=== PATIENT | female | born 1985 | race Caucasian/White ===

== ENCOUNTER 2021-04-25 14:02 | Emergency (ER) | payer BC, SELFPAY ==
--- NOTE | ~2021-04-25 | XR_ITS ---
EXAMINATION: XR chest 2V EXAM DATE: 04/25/2021 15:25 INDICATION: Cough for 2 weeks, left lower lateral rib pain. TECHNIQUE: Frontal and lateral projections of the chest obtained and reviewed. There is no prior kev dy for comparison. FINDINGS: The lungs are clear. There are no pleural effusions. The cardiomediastinal silhouette is within normal limits. There is no pneumothorax suspected. The bones and soft tissues are unremarkab le. IMPRESSION: No acute cardiopulmonary findings. Reviewed, dictated and finalized at location A. 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
--- NOTE | 2021-04-25 14:10 | ED.URI ---
HPI - URI/Sore Throat General Chief Complaint: Upper Respiratory Infection Stated Complaint: Cough/Fever/Dizziness Time Seen by Provider: 04/25/21 15:14 Source: patient and RN notes reviewed Mode of arrival: ambulatory Limitations: no limitations History of Present Illness HPI Narrative: 36-year-old female presents concern for pain under her left arm when she takes deep breath. She reports 10-day history of cough, body aches, chills, occasional shortness of breath, fever. Reports she has been using [id number] medications. MD elicited complaint: cough and sore throat Related Data Allergies Allergy/AdvReac Type Severity Reaction Status Date / Time No Known Allergies Allergy Unverified 04/21/21 08:47 Review of Systems Review of Systems: CONSTITUTIONAL: Reports malaise, chills, sweats, fever. EYES: Denies visual changes, redness, or discharge. ENT: Reports rhinorrhea, congestion. Denies sinus pain, otalgia and sore throat. CARDIOVASCULAR: Denies chest pain, palpitations, or edema. RESPIRATORY: Reports cough. Denies dyspnea. GASTROINTESTINAL: Denies abdominal pain, nausea, vomiting, diarrhea SKIN: Denies rash or itching. MUSCULOSKELETAL: Reports myalgia and left lateral rib pain. NEUROLOGIC: Denies headache. Reports dizziness All systems reviewed & are unremarkable except as noted in HPI and below PMFSH Comments At time of signature, agree with nursing past medical, surgical, social and family history. There is no relevant family history pertinent to the presenting complaint Exam Narrative: GENERAL: Well-appearing, well-nourished, and in no acute distress. HEAD: Normocephalic EYES: PERRLA, conjunctivae clear ENT: Nares clear, turbinates edematous, clear discharge. Mucous membranes moist. TM pearly vargas with dull light reflex bilaterally; no tragal tenderness. Oropharynx not erythematous without lesions. Tonsils not enlarged and without exudate, no drooling, no hoarseness, no trismus, uvula midline. NECK: Supple. No lymphadenopathy CHEST: Clear to auscultation, breath sounds equal. No wheezing, rhonchi, rales, or stridor. No respiratory distress, speaks in full sentences. Mild tenderness palpation of the left lateral lower ribs. Cough noted HEART: Regular rate and rhythm. No murmur heard. SKIN: Warm, dry, no rash. NEURO: Alert and oriented x3. PSYCH: Normal mood and affect Course Course Emergency Course: Patient is aware of diagnosis, understands and agrees to treatment plan. Anticipatory guidance given. Patient agrees to follow-up as directed and is aware of reasons to seek care at the emergency department. Portions of this record may have been created with voice recognition software Vital Signs Vital signs: Reviewed. MDM - URI/Sore Throat MDM Narrative Medical decision making narrative: Differential diagnosis considered: Mejía virus, strep pharyngitis, allergic rhinitis, upper respiratory tract infection, sinusitis, rhinosinusitis, nasopharyngitis. viral pharyngitis, otitis media, otitis externa, pneumonia, bronchitis, viral cough syndrome, viral syndrome, and influenza. Exam findings show no acute concerns or changes; patient is non-toxic appearing and is in no distress. Patient is appropriate for outpatient treatment and follow-up. Lab Data Attestation: I reviewed the patient's lab results. Critical Care Time Critical Care Time Critical Care Time: No Discharge Plan Discharge Clinical Impression: Sinobronchitis Patient Disposition: Home, Self-Care Condition: Stable Instructions: Antibiotic Form, Acute Bronchitis (ED) Additional Instructions: Take antibiotics as directed. Use muscle relaxers as needed for rib pain. Cough syrup may cause drowsiness; avoid driving or take it at night time. Also, recommend symptomatic treatment includes: rest, fluids, and increase humidity of the air at home. Recommend Acetaminophen as directed on the bottle to reduce fever, pain, headache. Avoid smoking/second-h
[2021-04-25 14:37] VITALS: BP 117/83; PULSE 97; RESP 20; TEMP 38.1; O2SAT 99
== END 2021-04-25 15:39 | disposition home or self-care (01) ==
PROVIDERS: Emergency Provider Nurse Practitioner; PCP Nurse Practitioner Family
DX: J32.9 Chronic sinusitis, unspecified (principal); J40 Bronchitis, not specified as acute or chronic; Z20.822 Contact with and (suspected) exposure to COVID-19
CPT/HCPCS: 71046; 87081; 87426; 87804; 87880; 99203; C9803; G0463

== ENCOUNTER 2021-06-02 09:24 | Emergency (ER) | payer BC, SELFPAY ==
--- NOTE | ~2021-06-02 | XR_ITS ---
EXAMINATION: XR chest 2V EXAM DATE: 06/02/2021 10:05 INDICATION: Post Covid Cough Since Apr.29. TECHNIQUE: Frontal and lateral projections of the chest obtained and reviewed. Comparison is made to prior examination from 04/25/2021. FINDINGS: The lungs are clear. There are no pleural effusions. The cardiomediastinal silhouette is within normal limits. There is no pneumothorax suspected. The bones and soft tissues are unremarkab le. IMPRESSION: No focal airspace disease. 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
[2021-06-02 09:36] VITALS: BP 120/76; PULSE 101; RESP 20; TEMP 37.2; O2SAT 100
--- NOTE | 2021-06-02 10:22 | ED.URI ---
HPI - URI/Sore Throat General Chief Complaint: Upper Respiratory Infection Stated Complaint: Cough/Loss of Taste/Back Pain Time Seen by Provider: 06/02/21 10:23 Source: patient and family Mode of arrival: ambulatory History of Present Illness HPI Narrative: patient presents with hx of covid 19 05/07/21. patient reports worsening cough. no shortness of breath and no chest pain. fully vaccinated and boosted for covid. MD elicited complaint: cough and nasal congestion Related Data Home Medications Medication Instructions Recorded Confirmed buspirone 15 mg PO BID 06/02/21 06/02/21 hydroxyzine HCl 50 mg PO BID 06/02/21 06/02/21 paroxetine HCl 40 mg PO DAILY 06/02/21 06/02/21 propranolol 40 mg PO BID 06/02/21 06/02/21 Allergies Allergy/AdvReac Type Severity Reaction Status Date / Time No Known Allergies Allergy Unverified 04/21/21 08:47 Review of Systems Review of Systems: CONSTITUTIONAL: Denies chills, or sweats. Reports fever and generalized body aches EYES: Denies visual changes, redness, or discharge. ENT: Denies otalgia. Reports nasal congestion runny nose and sore throat CARDIOVASCULAR: Denies chest pain, palpitations, or edema. RESPIRATORY: Denies dyspnea. Reports occasional cough GASTROINTESTINAL: Denies abdominal pain, nausea, vomiting, or diarrhea. GENITOURINARY: Denies dysuria or hematuria. SKIN: Denies rash or itching. MUSCULOSKELETAL: Denies back pain, joint pain, or myalgia. Reports generalized body aches NEUROLOGIC: Denies headache, numbness, or weakness. PSYCHIATRIC: Denies anxiety or depression. PMFSH Comments At time of signature, agree with nursing past medical, surgical, social and family history. There is no relevant family history pertinent to the presenting complaint Exam Narrative: The patient is a well-developed, well-nourished in no acute distress. SKIN: Skin is warm and dry without erythema, swelling or exudate. There is good turgor. No tenting. HEAD: Atraumatic. Normocephalic. No temporal or scalp tenderness. EYES: Moist and bright. Sclera and conjunctivae normal. No discharge. PERRLA. Extraocular motions intact. Gross visual acuity intact. EARS: Pinna is normal shape and contour. Clear external auditory canals. TM pearly vidal with good cone of light, no erythema or suppuration. Bilateral cerumen noted no gross hearing deficit. NOSE: pink, moist mucosa with good air movement. Clear rhinorrhea without nasal flaring. Septum midline. Mouth: moist mucous membranes. THROAT; mild erythema noted to posterior oropharynx with moderate postnasal drainage. Without exudate or ulceration.. Uvula midline. Normal movement of soft palate. NECK: Supple and nontender with full range of motion without discomfort. No meningeal signs. LUNGS: Equal and bilateral breath sounds without wheezes, rales or rhonchi. CHEST: The chest wall is without retractions or use of accessory muscles. HEART: Has a regular rate and rhythm without murmur, gallops, click or rub. ABDOMEN: Soft, nontender with positive active bowel sounds. No rebound tenderness. EXTREMITIES: Without cyanosis, clubbing or edema. Equal 2+ distal pulses and 2 second capillary refill noted. NEUROLOGIC: alert, active, . The patient moves all extremities with normal muscle strength. Normal muscle tone is noted. Normal coordination is noted. NO focal neurological findings noted. Course Course Level of Care: Express Care Visit Vital Signs Vital signs: Vital Signs Temperature 37.2 C 06/02/21 09:36 Pulse Rate 101 H 06/02/21 09:36 Respiratory Rate 20 06/02/21 09:36 Blood Pressure 120/76 06/02/21 09:36 Pulse Oximetry 100 06/02/21 09:36 Temperature 37.2 C 06/02/21 09:36 Pulse Rate 101 H 06/02/21 09:36 Respiratory Rate 20 06/02/21 09:36 Blood Pressure 120/76 06/02/21 09:36 Pulse Oximetry 100 06/02/21 09:36 Addressed elevated BP today. Today's blood pressure higher than recommended range. Discussed importance of follow -up with
== END 2021-06-02 10:41 | disposition home or self-care (01) ==
PROVIDERS: Emergency Provider Nurse Practitioner Family; PCP Family Medicine
DX: J06.9 Acute upper respiratory infection, unspecified (principal); J40 Bronchitis, not specified as acute or chronic; Z86.16 Personal history of COVID-19; F41.9 Anxiety disorder, unspecified; F32.A Depression, unspecified
CPT/HCPCS: 71046; 87804; 99213; G0463

== ENCOUNTER 2021-06-23 14:57 | Outpatient (CLI) | payer BC, SELFPAY ==
[2021-06-23 19:10] LABS: Hematocrit 37.2 % (37.0-47.0); Hemoglobin 12.2 g/dL (12.0-15.0); Mean Corpuscular HGB Conc 32.8 g/dl (32-36); Mean Corpuscular Hemoglobin 27.2 pg (26-34); Mean Corpuscular Volume 82.9 fl (80-100); Mean Platelet Volume 10.5 fl (7.4-10.4); Platelet Count Result 192 k/mm3 (150-375); Red Blood Count 4.49 M/mm3 (4.2-5.4); Red Cell Distribution Width 13.8 % (11.5-14.5); White Blood Count 6.5 K/mm3 (4.5-10.0)
[2021-06-23 19:23] LABS: Alanine Aminotransferase 23 U/L (4-35); Albumin Level 4.5 g/dL (3.5-5.1); Alkaline Phosphatase 74 U/L (38-126); Anion Gap 9 mmol/L (8-16); Aspartate Amino Transferase 24 U/L (14-36); Blood Urea Nitrogen 13 mg/dL (7-17); Carbon Dioxide 26 mmol/L (22-30); Chloride 104 mmol/L (98-107); Cholesterol 235 mg/dL (0-200); Estimated Glomerular Filt Rate > 60; Glucose 89 mg/dL (65-110); HDL Direct 48 mg/dL; Potassium 3.7 mmol/L (3.4-5.0); Sodium 139 mmol/L (137-145); Triglycerides 122 mg/dL (<150)
[2021-06-23 19:34] LABS: Hemoglobin A1C 5.4 % (<5.7)
[2021-06-23 19:36] LABS: LDL Cholesterol Direct 155 mg/dL
[2021-06-26 21:36] LABS: CRP, High Sensitivity 7.1 mg/L (***)
== END 2021-06-23 14:58 | disposition home or self-care (01) ==
PROVIDERS: PCP Family Medicine; Visit Provider Family Medicine
DX: Z00.00 Encounter for general adult medical examination without abnormal findings (principal); F41.9 Anxiety disorder, unspecified; G47.00 Insomnia, unspecified; Z82.49 Family history of ischemic heart disease and other diseases of the circulatory system; F41.0 Panic disorder [episodic paroxysmal anxiety]
CPT/HCPCS: 36415; 80053; 80061; 83036; 84443; 85027; 86141

== ENCOUNTER 2021-11-06 12:23 | Outpatient (CLI) | payer BC, SELFPAY ==
--- NOTE | ~2021-11-06 | XR_ITS ---
XR toe 1st LT min 2V DATE: 11/06/2021 12:36 INDICATION: Toe pain TECHNIQUE: 3 views COMPARISON: None FINDINGS: There is motion on the lateral view, limiting the examination. No fracture, dislocation, periosteal reaction or bone destruction is detected. Mild osteoarthritis at first metatarsophalangeal joint. Slight plantar calcaneal enthesopathy. Repeat lateral view can be performed at no additional charge. IMPRESSION: Suboptimal examination due to motion on lateral view. Lateral view can be repeated at no additional charge. Mild osteoarthritis at first metatarsophalangeal joint Slight plantar calcaneal enthesopathy Reviewed, dictated and finalized at location A.
== END 2021-11-06 12:24 | disposition home or self-care (01) ==
LOC: ANHBWCIMG 12:25
PROVIDERS: PCP Family Medicine; Visit Provider Family Medicine
DX: S99.929A Unspecified injury of unspecified foot, initial encounter (principal); X58.XXXA Exposure to other specified factors, initial encounter; M77.32 Calcaneal spur, left foot
CPT/HCPCS: 73660

== ENCOUNTER 2022-01-02 15:13 | Outpatient (CLI) | payer BC, SELFPAY ==
--- NOTE | ~2022-01-02 | XR_ITS ---
EXAMINATION: XR knee RT min 4V DATE: 01/02/2022 15:27 INDICATION: Right knee pain TECHNIQUE: Weight bearing anteroposterior and Sparks, sunrise, and flexed lateral views of the rig ht knee were obtained COMPARISON: None. FINDINGS: Alignment is normal. No fracture. Minimal joint space narrowing in the medial compartment. Joint [facility] [place] in the lateral patellofemoral compartments are normal. No joint effusion/layering lipohemarthrosi s. Soft tissues are unremarkable. IMPRESSION: 1. Minimal joint space narrowing the medial compartment. Otherwise unremarkable right knee radiograph s. Reviewed, dictated and finalized at location A. IMPRESSION: 1. Minimal joint space narrowing the medial compartment. Otherwise unremarkable right knee radiographs.
== END 2022-01-02 15:14 | disposition home or self-care (01) ==
LOC: ANHBWCIMG 15:15
PROVIDERS: PCP Family Medicine; Visit Provider Family Medicine
DX: M25.561 Pain in right knee (principal)
CPT/HCPCS: 73564

== ENCOUNTER 2022-08-13 08:31 | Outpatient (CLI) | payer OTHER, SELFPAY ==
[2022-08-13 19:24] LABS: Basophils Percent Auto 0.6 % (0.2-1.2); Eosinophils Absolute Auto 0.3 K/mm3 (0-0.3); Eosinophils Percent Auto 4.4 % (0-4.4); Hematocrit 39.2 % (37.0-47.0); Hemoglobin 12.2 g/dL (12.0-15.0); Immature Granulocyte Absolute 0.01 K/mm3 (0.00-0.031); Immature Granulocyte Percent A 0.2 % (0-0.5); Lymphocytes Absolute Auto 2.09 K/mm3 (0.9-3.2); Lymphocytes Percent Auto 33.9 % (18.3-44.2); Mean Corpuscular HGB Conc 31.1 g/dl (32-36); Mean Corpuscular Hemoglobin 28.2 pg (26-34); Mean Corpuscular Volume 90.7 fl (80-100); Mean Platelet Volume 10.3 fl (7.4-10.4); Monocytes Absolute Auto 0.4 K/mm3 (0.1-0.6); Monocytes Percent Auto 5.8 % (2.6-8.5); Neutrophils Absolute Auto 3.4 K/mm3 (1.3-6.7); Neutrophils Percent Auto 55.1 % (45.5-73.1); Platelet Count Result 198 k/mm3 (150-375); Red Blood Count 4.32 M/mm3 (4.2-5.4); Red Cell Distribution Width 13.7 % (11.5-14.5); White Blood Count 6.2 K/mm3 (4.5-10.0)
[2022-08-13 19:44] LABS: Alanine Aminotransferase 19 U/L (6-35); Albumin Level 4.3 g/dL (3.5-5.1); Alkaline Phosphatase 59 U/L (38-126); Anion Gap 5 mmol/L (8-16); Aspartate Amino Transferase 61 U/L (14-36); Bilirubin,Total 0.7 mg/dL (0.2-1.3); Blood Urea Nitrogen 14 mg/dL (7-17); Calcium 8.7 mg/dL (8.4-10.2); Carbon Dioxide 30 mmol/L (22-30); Chloride 104 mmol/L (98-107); Cholesterol 187 mg/dL (0-200); Estimated Glomerular Filt Rate > 60; Glucose 87 mg/dL (65-110); HDL Direct 42 mg/dL; Potassium 4.3 mmol/L (3.4-5.0); Sodium 139 mmol/L (137-145); Triglycerides 86 mg/dL (<150)
[2022-08-13 19:55] LABS: LDL Cholesterol Direct 115 mg/dL
== END 2022-08-13 08:32 | disposition home or self-care (01) ==
LOC: ANHBWCLAB 08:33
PROVIDERS: PCP Family Medicine; Visit Provider Nurse Practitioner Family
DX: Z00.00 Encounter for general adult medical examination without abnormal findings (principal)
CPT/HCPCS: 36415; 80053; 80061; 84443; 85025

== ENCOUNTER 2022-09-25 17:18 | Emergency (ER) | payer OTHER, SELFPAY ==
--- NOTE | ~2022-09-25 | XR_ITS ---
EXAMINATION: XR chest 2V DATE: 09/25/2022 17:40 INDICATION: And shortness of breath, cough and chest tightness TECHNIQUE: frontal and lateral views of the chest were obtained. COMPARISON: Chest radiograph dated 06/02/2021 FINDINGS: The lungs remain clear with no focal airspace opacities, pulmonary edema, pleural effusion or pneumot horax. The cardiomediastinal silhouette is normal. Visualized bones and soft tissues are unremarkable . IMPRESSION: 1. Normal chest radiograph. Reviewed, dictated and finalized at location A. IMPRESSION: 1. Normal chest radiograph.
[2022-09-25 17:23] VITALS: BP 120/74; PULSE 103; RESP 16; TEMP 36.9; O2SAT 100
--- NOTE | 2022-09-25 17:38 | ED.URI ---
HPI - URI/Sore Throat General Chief Complaint: Upper Respiratory Infection Stated Complaint: Cough/Shortness Of Breath Source: patient and RN notes reviewed Limitations: no limitations History of Present Illness HPI Narrative: Patient is a 37-year-old female who presents to the [facility] with complaints of shortness of breath, cough, and chest tightness that has been ongoing for the past 4 weeks. patient states that 4 weeks ago she was seen at [facility] ED for chest pain. States that she had a full workup with labs and an EKG and was diagnosed with a pulled muscle and prescribed naproxen. Patient states that 3 weeks ago, she developed a dry, deep cough that was frequent. A week later, she started experiencing shortness of breath with exertion especially with going up steps. Patient states that the chest tightness she is experiencing started today. States that it worsens with a cough that makes her become short of breath. Her respirations are unlabored currently. She does not appear in any acute distress. She denies fevers. Related Data Home Medications Medication Instructions Recorded Confirmed propranolol 40 mg tablet 40 mg PO BID 06/02/21 09/11/21 Allergies Allergy/AdvReac Type Severity Reaction Status Date / Time No Known Allergies Allergy Unverified 08/13/22 08:13 Review of Systems Review of Systems: CONSTITUTIONAL: Denies fever, chills, or sweats. EYES: Denies visual changes, redness, or discharge. ENT: Denies otalgia and sore throat CARDIOVASCULAR: Denies chest pain, palpitations, or edema. RESPIRATORY: Reports cough and dyspnea. Reports chest tightness. GASTROINTESTINAL: Denies abdominal pain, nausea, vomiting, or diarrhea. GENITOURINARY: Denies dysuria or hematuria. SKIN: Denies rash or itching. MUSCULOSKELETAL: Denies back pain, joint pain, or myalgia. NEUROLOGIC: Denies headache, numbness, or weakness. Pertinent positives per HPI. [facility] Social History Social History Smoking status: Never smoker Lack of Transportation: No Lack of Food: Never True Current Housing: I Have Housing Concerned About Future Housing: No Difficulty Paying Gas/Electric Bills: No Difficulty Paying for Meds: No Currently Unemployed: No Education: Associate Degree Difficulty w/ Childcare or Family Care: No Comments At the time of my signature, I reviewed and agree with the nursing past medical, surgical, social, and family history. There is no relevant family history pertinent to the patient complaint. Exam Narrative: GENERAL: This is a well-nourished, well-developed patient, in no apparent distress. HEAD: normocephalic, atraumatic. EYES: Sclera clear/white. Vision is grossly intact. EARS: External ears normal, auditory canals clear and without drainage. Hearing grossly intact. NOSE: External nose normal with no obvious nasal discharge, nares without redness, no rhinorrhea. THROAT: Mucous membranes moist, posterior pharynx clear. NECK: Neck supple, non-tender without lymphadenopathy, masses or thyromegaly. CARDIOVASCULAR: Regular rate and rhythm without murmurs, gallops, or rubs. RESPIRATORY: Clear to auscultation. Breath sounds equal bilaterally. No wheezes, rales, or rhonchi. GASTROINTESTINAL: Abdomen soft, non-tender, nondistended. Bowel sounds are active. No hepato-splenomegaly, or palpable masses. No guarding. SKIN: warm, intact with no suspicious lesions or rash, good texture and turgor. NEURO: awake, alert, and oriented to person, place and time. There were no obvious focal neurologic abnormalities. Course Course Level of Care: Express Care Visit Vital Signs Vital signs: Vital Signs Temperature 98.4 F 09/25/22 17:23 Pulse Rate 103 H 09/25/22 17:23 Respiratory Rate 16 09/25/22 17:23 Blood Pressure 120/74 09/25/22 17:23 Pulse Oximetry 100 09/25/22 17:23 Oxygen Delivery Room Air 09/25/22 17:23
== END 2022-09-25 18:06 | disposition home or self-care (01) ==
PROVIDERS: Emergency Provider Nurse Practitioner; PCP Family Medicine
DX: J20.9 Acute bronchitis, unspecified (principal); Z86.16 Personal history of COVID-19
CPT/HCPCS: 71046; 99213; G0463

== ENCOUNTER 2023-04-05 12:51 | Outpatient (CLI) | payer OTHER, SELFPAY ==
--- NOTE | ~2023-04-05 | MMUS_ITS ---
EXAMINATION: MM diagnostic victor manuel BI w chirag, US breast BI limited HISTORY: Enlarged lymph nodes. TECHNIQUE: Additional 3-D tomosynthesis images of the breasts were performed and synthetic 2-D images were generated. CAD analysis was submitted and interpreted. High resolution limited bilateral breast ultrasound was performed. COMPARISON: None BREAST PARENCHYMAL COMPOSITION: Breast composed of scattered areas of fibroglandular density FINDINGS: MAMMOGRAPHIC FINDINGS: There are no suspicious masses, calcifications or architectural distortion in either breast to sugges t malignancy. ULTRASOUND: Limited right breast and axillary ultrasound 1 in the right axilla there is a subcutaneous cyst measu ring 3 mm. No suspicious right breast masses to suggest malignancy. Limited left axillary ultrasound: There are normal-appearing lymph nodes of the left axilla, largest measuring 1.4 cm. No suspicious masses in the left axilla to suggest malignancy. IMPRESSION: 1. No evidence for malignancy in either breast. 2. Routine yearly screening mammogram and regular clinical breast examination are recommended. BI-RADS Category 2: Benign finding(s). Reviewed, dictated and finalized at location A. 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 No evidence for malignancy in either breast. 2. Routine yearly screening mammogram and regular clinical breast examination a re recommended. BI-RADS Category 2: Benign finding(s).
== END 2023-04-05 12:52 | disposition home or self-care (01) ==
PROVIDERS: PCP Nurse Practitioner Adult Health; Visit Provider Nurse Practitioner Adult Health
DX: R59.0 Localized enlarged lymph nodes (principal)
CPT/HCPCS: 76642; 77062; 77066; G0279

== ENCOUNTER 2024-02-14 08:24 | Emergency (ER) | payer OTHER, SELFPAY ==
[2024-02-14 08:30] VITALS: BP 122/80; PULSE 90; RESP 18; TEMP 36.8; O2SAT 100
--- NOTE | 2024-02-14 08:32 | ED.CHESTPAIN ---
HPI - Chest Pain General Chief Complaint: Chest Pain Stated Complaint: Chest Pain Time Seen by Provider: 02/14/24 08:25 Source: patient Mode of arrival: ambulatory Limitations: no limitations History of Present Illness HPI narrative: Patient is a 38-year-old female that presents with left sided chest pain with movement. Patient states she stretched this morning and caused pain to start. Patient also has pain to left scapular area. Denies any numbness, tingling or weakness down arms. Denies any shortness of breath. Patient reports having severe anxiety and having father had a heart attack at 42 with this pain made her concerned. Related Data Allergies Allergy/AdvReac Type Severity Reaction Status Date / Time No Known Allergies Allergy Unverified 08/25/23 08:35 Review of Systems Review of Systems: All systems reviewed & are unremarkable except as noted in HPI and below Constitutional: Constitutional: Denies body ache(s), Denies chills, Denies fatigue, Denies fever(s), Denies headache(s), Denies malaise and Denies weakness Eyes: Eyes: Denies blurry vision, Denies irritation and Denies loss of vision ENT: Denies otalgia, Denies headache(s), Denies nasal discharge, Denies sinus pain and Denies sore throat Cardiovascular: Cardiovascular: Reports chest pain, Denies irregular heart rhythm and Denies dyspnea Respiratory: Respiratory: Denies dyspnea Gastrointestinal: Gastrointestinal: Denies abdominal pain, Denies melena, Denies hematochezia, Denies diarrhea, Denies nausea and Denies vomiting Musculoskeletal: Musculoskeletal: Denies back pain, Denies myalgias and Denies arthralgias Integumentary/Breasts: Skin/Breast: Denies pruritus and Denies rash Neurologic: Denies headache(s), Denies loss of vision and Denies weakness Psychiatric: Psychiatric: Reports no additional psychiatric complaints Endocrine: Endocrine: Denies fatigue PMF Past Medical History Medical History Ear pain Social History Social History Smoking status: Never smoker Lack of Transportation: No Lack of Food: Never True Current Housing: I Have Housing Concerned About Future Housing: No Difficulty Paying Gas/Electric Bills: No Difficulty Paying for Meds: No Currently Unemployed: No Education: Associate Degree Difficulty w/ Childcare or Family Care: No Comments At time of signature, agree with nursing past medical, surgical, social and family history. There is no relevant family history pertinent to the presenting complaint. Exam Const: General: cooperative, healthy appearing, comfortable, no acute distress and well nourished Nutritional Appearance: well nourished Orientation/consciousness: patient oriented x3 Limitations: no limitations HENMT: Head: normal to inspection, normocephalic and atraumatic Ears: hearing grossly normal bilaterally and external ears normal Face/Nose/Sinus: Normal external nose present, normal facial exam and face symmetric Face and sinus: normal facial exam and face symmetric Mouth: Yes lip normal Eyes: General: appearance normal, both eyes and all related structures Alignment and Position: alignment normal and position normal Periorbital: periorbital findings normal Eyelids: eyelids normal Pupils: Equal, round and reactive pupils present EOM: EOMs intact bilaterally Neck: Neck: normal visual inspection, full ROM and supple Chest: Chest palpation & inspection: normal inspection of the chest and tenderness (Tenderness on palpation to left chest wall along with left subscapular area) Resp: Effort & Inspection: normal respiratory effort and able to speak in complete sentences Auscultation: clear to auscultation bilaterally Cardio: Rate: regular rate Rhythm: regular rhythm Heart sounds: S1 normal heart sound present and S2 normal heart sound present GI: Inspection: normal to inspec
[2024-02-14 08:36] VITALS: BP 122/80; PULSE 90; RESP 18; TEMP 36.8; O2SAT 100
--- NOTE | 2024-02-14 08:49 | ECG_ITS ---
Test Date: 2024-02-14 08:42:34 Measurements Intervals Benedict Rate: 88 P: 252 ID: [id number] QRS: 75 QRSD: 95 T: 67 QT: 368 QTc: 447 Interpretive Statements NORMAL SINUS RHYTHM ARTIFACT LIMITS INTERPRETATION PROBABLY NORMAL ECG Electronically Signed On 02-14-2024 10:45:42 CDT by Joni Mcclellan M.D.
== END 2024-02-14 09:16 | disposition home or self-care (01) ==
PROVIDERS: Emergency Provider Nurse Practitioner Family; PCP Nurse Practitioner Adult Health
DX: S29.011A Strain of muscle and tendon of front wall of thorax, initial encounter (principal); S21.102A Unspecified open wound of left front wall of thorax without penetration into thoracic cavity, initial encounter; X58.XXXA Exposure to other specified factors, initial encounter; Z82.49 Family history of ischemic heart disease and other diseases of the circulatory system
CPT/HCPCS: 93005; 99213; G0463